=== PATIENT | female | born 1960 | race Caucasian/White ===

== ENCOUNTER 2024-11-04 07:58 | Outpatient (RCR) | payer BC, SELFPAY | END 2024-12-09 09:46 | disposition home or self-care (01) | LOC: HO.PT 07:58 | PROVIDERS: PCP Internal Medicine; Visit Provider Obstetrics & Gynecology | DX: N39.3 Stress incontinence (female) (male) (principal) | CPT/HCPCS: 97112; 97140; 97161; 97530 ==